=== PATIENT | female | born 1995 | race Caucasian/White ===

== ENCOUNTER 2016-05-08 10:02 | Emergency (ER) | payer BC ==
[~2016-05-08] VITALS: Ht 157.5 cm; Wt 63.5 kg
[2016-05-08] MEDS ORDERED: METOCLOPRAMIDE INJ 10MG/2ML VIAL (J2765) IV ONE (13:30)
[2016-05-08] MEDS ORDERED: KETOROLAC 30 MG/ML VIAL (J1885) IV ONE (13:30)
--- NOTE | 2016-05-08 13:56 | REP ---
Head CT without contrast: History: Worse headache of her life. Comparison study: No comparison study. CT findings: Bone window settings demonstrate an intact bony calvarium. There is no evidence of skull fracture or incidental bony calvarial lesion. The visualized paranasal sinuses appear clear. No intraorbital abnormality is seen. On soft tissue window setting images; the lateral, third, and fourth ventricles are normal in size and position. Iraheta-white differentiation pattern is normal above and below the tentorium. There are is no evidence of intracranial hemorrhage. No mass, edema, infarction, or midline shift is seen. No extra-axial fluid collection is appreciated. Impression: Negative noncontrast head CT. Signed by Julio Murillo MD 05/08/2016 01:48 P
[2016-05-08] MEDS ORDERED: ZOFR4TAB3 PO (15:21)
[2016-05-08] MEDS ORDERED: AUGM875T27 PO (15:21)
[2016-05-08] MEDS ORDERED: IBUP800T23 PO (15:21)
[2016-05-08] MEDS ORDERED: MUCI600T34 PO (15:21)
[2016-05-08 15:27] VITALS: BP 104/68
== END 2016-05-08 15:35 | disposition home or self-care (01) ==
LOC: M ED 11:40
DX: R51 Headache (principal); J01.90 Acute sinusitis, unspecified; H66.93 Otitis media, unspecified, bilateral; Z79.899 Other long term (current) drug therapy
CPT/HCPCS: 70450; 96374; 96375; 99282; J1885; J2765